=== PATIENT | male | born 1980 | race Caucasian/White ===

== ENCOUNTER 2016-10-03 00:55 | Emergency (ER) | payer OTHER ==
[2016-10-03 01:03] VITALS: BP 164/100; BMI 41.8
--- NOTE | 2016-10-03 01:12 | DR.GENAD ---
HPI - PCP Primary Care Physician: LUIS - Complaint/Symptoms Chief Complaint:: WAS CLIMBING OUT OF FIRE TRUCK AND LOST BALANCE AND LANDED FLAT ON BACK. - Source History Provided: Patient - Mode of Arrival Mode of Arrival: EMS - Timing Onset of Chief Complaint: 10/03/16 PMH - PMH Past Medical History: No Past Surgical History: No - Family History History of Family Medical Conditions: Yes Family Medical History: Hypertension - Social History Alcohol Use: None Do you use any recreational Drugs:: No Lives Where: Home - infectious screening Have you traveled outside the country in the last 6 months?: No ROS - Review of Systems Eyes: No Symptoms Reported ENTM: No Symptoms Reported Respiratoy: No Symptoms Reported Cardiovascular: No Symptoms Reported Gastrointestinal/Abdominal: No Symptoms Reported Genitourinary: No Symptoms Reported Neurological: No Symptoms Reported Musculoskeletal: Back Pain Integumentary: No Symptoms Reported Hematologic/Lymphatic: No Symptoms Reported Endocrine: No Symptoms Reported Psychiatric: No Symptoms Reported All Other Systems: Reviewed and Negative PE - Vital Signs Vitals: Temperature 98.5 F Pulse Rate 114 Respiratory Rate 18 Blood Pressure 164/100 O2 Sat by Pulse Oximetry 95 - General Limitations: No Limitations General Appearance: Alert, In No Apparent Distress - Head Head Exam: Normal Inspection, Atraumatic - Eyes Eye exam: Normal Appearance, PERRL, EOMI - ENT ENT Exam: Normal Exam External Ear Exam: Normal External Inspection TM/Canal Exam: Bilateral Normal Nose Exam: Normal Nose Exam Mouth Exam: Normal Inspection Throat Exam: Normal Inspection - Neck Neck Exam: Normal Inspection - Chest Chest Inspection: Normal Inspection - Respiratory Respiratory Exam: Normal Lung Sounds Bilat Respiratory Exam: Bilateral Clear to Auscultation - Cardiovascular Cardiovascular Exam: Regular Rate - Abdominal Exam Abdominal Exam: Normal Inspection Abdominal Tenderness: negative: RUQ, RLQ, LUQ, LLQ, Epigastrium, Suprapubic, Diffuse, Mild, Moderate, Severe, Other - Extremities Extremities Exam: Normal Inspection, Full ROM - Back Back Exam: Normal Inspection, Tenderness (mid upper back) - Neurologic Neurological Exam: Alert, Oriented X3, CN II-XII Intact - Psychiatric Psychiatric Exam: Normal Affect - Skin Skin Exam: Warm, Dry ROR - XRAY XRAY Interpreted by: Radiologist (Thoracic spine: Mild dis space narrowing is seen throughout the thoracic levels. No acute fracture or subluxaton. The vertebral body heights are preserved. The visualized pedicles are intact. Impression: Mild degenerative disc changes are seen throughout the throacic spine. No acute abnormality is identified) - Diagnosis Discharge Problem: Degenerative disc disease, thoracic - Discharge Plan Condition: Stable - Follow ups/Referrals Follow ups/Referrals: ELDA LUIS [Primary Care Provider] - 3 days - Instructions
--- NOTE | 2016-10-03 01:54 | RAD ---
EXAM: Chest X-ray INDICATION: Fall, chest pain COMPARISION: No prior TECHNIQUE: PA and Lat, 2 view FINDINGS: The lungs are clear and the lung volumes are within normal limits. No pleural effusion or pneumothor ax. The cardiac silhouette and mediastinum are normal. The regional skeleton is intact. IMPRESSION: Normal Chest X-Ray Reported By:
--- NOTE | 2016-10-03 01:54 | RAD ---
EXAM: Thoracic Spine X-Ray INDICATION: Thoracic pain COMPARISION: No priors for comparison TECHNIQUE: AP and lateral views were obtained, two views FINDINGS: Mild disk space narrowing is seen throughout the thoracic levels. No acute fracture or subluxation. The vertebral body heights are preserved. The visualized pedicles are intact. IMPRESSION: Mild degenerative disc changes are seen throughout the thoracic spine. No acute abnormality is ident ified. Reported By:
== END 2016-10-03 02:07 | disposition home or self-care (01) ==
LOC: ER 00:55
DX: M51.34 Other intervertebral disc degeneration, thoracic region (principal)
CPT/HCPCS: 71020; 72072; 99282